=== PATIENT | male | born 1965 | race Caucasian/White ===

== ENCOUNTER 2019-11-26 12:44 | Outpatient (CLI) | payer OTHER, SELFPAY ==
--- NOTE | 2019-11-26 | XR_ITS ---
WS: [id number] LUMBAR SPINE: 5 VIEWS TECHNIQUE: AP, lateral, and L5-S1 spot. Lateral views in neutral, flexion and extension. HISTORY: LOW BACK PAIN COMPARISON: None available. Normal lumbar alignment. Moderate disc space narrowing and desiccation at L5-S1. Endplate osteophytes at all levels. With flexion and extension there is no instability. No destructive bone process or fracture. SI joints are symmetric bilaterally. No soft tissue abnormalities. XR/XR lumbar spine min 4V [id number] IMPRESSION: 1. Multilevel spondylosis with moderate degenerative disc disease at L5-S1. 2. No instability.
== END 2019-11-26 12:45 | disposition home or self-care (01) ==
LOC: RADOUTREAD 16:29
PROVIDERS: Family Provider Family Medicine; PCP Family Medicine; Visit Provider Physician Assistant
DX: Z76.89 Persons encountering health services in other specified circumstances (principal)

== ENCOUNTER → 2020-10-23 13:51 | Outpatient (BNVA) | payer OTHER, SELFPAY | PROVIDERS: Family Provider Family Medicine; PCP Family Medicine; Visit Provider Nurse Practitioner Family | DX: Z20.828 Contact with and (suspected) exposure to other viral communicable diseases (principal) | CPT/HCPCS: 87635 ==

== ENCOUNTER 2023-01-26 11:58 | Outpatient (CLI) | payer OTHER, SELFPAY ==
--- NOTE | 2023-01-26 12:06 | CT_ITS ---
WS: [id number] LDCT LUNG CANCER SCREENING HISTORY: NICOTINE Dependence, cigarettes TECHNIQUE: Axial imaging performed from the apices to 1 cm below the costophrenic angles. Coronal and sagittal reformats are submitted with axial MIP series. All CT scans at [facility] use at least one of these dose optimization techniques: automated exposure control; mA and/or kV adjustment per patient size (includes targeted exams where dose is matched to clinical indication); or iterativ e reconstruction. DLP: 76.51 mGy.cm DIvol: Mean CTDIvol: 1.60 (mGy) COMPARISON: None available. Diagnostic quality: Satisfactory Lungs: No pulmonary mass or nodule. No pneumonia. No endobronchial lesions. Heart: Normal size heart with no pericardial effusion.. Other findings: Mild atherosclerosis aorta. Normal size pulmonary artery. Small hiatal hernia. Hepati c steatosis. CT/CT lung screening [id number] IMPRESSION: LUNG-RADS: 1-Negative FOLLOW UP: 12 Month: Continue annual screening with LDCT OTHER FINDINGS (S MODIFIER): None.
== END 2023-01-26 11:59 | disposition home or self-care (01) ==
PROVIDERS: PCP Physician Assistant; Visit Provider Physician Assistant
DX: Z12.2 Encounter for screening for malignant neoplasm of respiratory organs (principal); F17.210 Nicotine dependence, cigarettes, uncomplicated
CPT/HCPCS: 71271

== ENCOUNTER 2023-12-31 09:29 | Emergency (ER) | payer OTHER, SELFPAY ==
[2023-12-31 09:43] VITALS: BP 155/87; PULSE 83; RESP 16; TEMP 36.9; O2SAT 93; BMI 33.4
--- NOTE | 2023-12-31 10:37 | W.ED.EYEPROB ---
HPI - Eye Problem General: Chief complaint: Eye Problems Stated complaint: eye problems Time Seen by Provider: 12/31/23 10:08 History of Present Illness: 58-year-old male presents to the emergency department with complaints of irritation and redness initially to his left eye that started 3 days ago and then it is spread yesterday to both eyes he states the eyes are having drainage and thick matting. He states he has light sensitivity he denies known injury or trauma. He states the eyes are burning and states that they are 3 out of 10. He denies change in vision. He states any sort of bright light causes his eyes to be extra sensitive. He states his has a similar illness. He denies fevers chills or night sweats. He denies UV exposure to the eyes. He denies headache dizziness or lightheaded feeling. He denies neck stiffness or pain. He denies fever. Review of Systems General: Reports: 10 or more systems reviewed and unremarkable except in HPI and below Eyes: Reports: eye discomfort, eye discharge, eye redness and increased production of tears PFSH ED PFSH: Social History (Updated 10/23/20 @ 12:22 by Jina Bunn NP) Smoking and tobacco/nicotine status: current every day tobacco/nicotine user Alcohol intake: current Alcohol intake frequency: holidays/special occasions only Substance/Drug Use: never Physical Exam Const: COMMON NORMALS: no acute distress, patient oriented x3 and alert HENMT: COMMON NORMALS: normocephalic, atraumatic, external ears normal, TM's normal bilaterally, Normal external nose present and moist oral mucous membranes HEAD & SCALP: normocephalic and atraumatic NOSE: Normal external nose present EXTERNAL EAR: Yes external ears normal TYMPANIC MEMBRANE: TM's normal bilaterally Eye: COMMON NORMALS: Equal, round and reactive pupils present GENERAL EYE: appearance normal, both eyes and all related structures and normal light reflex VISUAL ACUITY: Yes acuity normal VISUAL FUENTES: No peripheral vision loss and No central vision loss ALIGNMENT: Yes alignment normal CONJUNCTIVA: Yes conjunctival abnormal positive bilateral PUPIL: Yes Equal, round and reactive pupils present and Yes Pupil accommodation reflex normal EOM: No EOM abnormal, No movement deficit and No Nystagmus present DIRECT OPHTHALMOSCOPY: Yes normal light reflex Neck/C-Spine: COMMON NORMALS: full ROM, no lymphadenopathy, supple, no meningeal signs and no JVD Resp: COMMON NORMALS: normal respiratory effort, No use of accessory muscles and clear to auscultation bilaterally AUSCULTATION: clear to auscultation bilaterally Cardio: COMMON NORMALS: no JVD, regular rate, regular rhythm, S1 normal heart sound present, S2 normal heart sound present and Peripheral pulses 2+ throughout RATE: regular rate RHYTHM: regular rhythm HEART SOUNDS: S1 normal heart sound present and S2 normal heart sound present PERIPHERAL PULSES: Peripheral pulses 2+ throughout GI: COMMON NORMALS: Normal to inspection, nondistended, normoactive bowel sounds present, Soft to palpation and non-tender PALPATION: Yes Soft to palpation Extremity: COMMON NORMALS: normal to inspection, full ROM and capillary refill normal Neuro: COMMON NORMALS: patient oriented x3 SENSORIUM/ORIENTATION: Yes alert MENINGEAL SIGNS: Yes no meningeal signs Psych: COMMON NORMALS: mental status grossly normal, Normal thought process present, cooperative, normal affect and speech normal SPEECH: Yes normal speech THOUGHT PROCESS: Normal thought process present Skin: COMMON NORMALS: no rashes or lesions noted GENERAL SKIN EXAM: no rashes or lesions noted Course Vital Signs: Vital signs: Vital Signs Temperature 98.4 F 12/31/23 09:43 Pulse Rate 83 12/31/23 09:43 Respiratory Rate 16 12/31/23 09:43 Blood Pressure 155/87 12/31/23 09:43 Pulse Oximetry 93 12/31/23 09:43 Oxygen Delivery Me thod Room Air 12/31/23 09:43 MDM - Eye Problem Medical Decision Making Physical exam completed and documented it does appear that the patient on examination has bacterial conjunctivitis as his description of the onset of symptoms moved from his left eye to his right eye and he did come in contact with someone with bacterial conjunctivitis which was a spouse. I will provide him tetracaine for his irritation to his eyes. I will also provide him erythromycin ointment while here in the emergency department and also prescription with follow-up recommendation to deliverer merchandise of his choice. Medical Records I reviewed the patient's medical records. No radiology studies performed this visit Discharge Plan Discharge Patient Disposition: Home Clinical Impression: Bacterial conjunctivitis Condition: Stable Prescriptions: New erythromycin 5 mg/gram (0.5 %) ointment 1 applic ophthalmic (eye) BID 7 Days Qty: 50 0RF No Action metoprolol succinate 25 mg tablet extended release 24 hr 25 mg PO DAILY hydrochlorothiazide 12.5 mg capsule 12.5 mg PO DAILY Discharge Orders: Discharge ED (Routine); Ordered 12/31/23 Ordered By: Adair Dill Referrals: Luis Bunn MD [Physician] - Belinda Hitchcock PA [Primary Care Provider] - Discharge Diet: Usual diet Discharge Activity: Resume usual activity Patient Instructions: Opioid Safety, Pain Management Activity Restrictions/Additional Instructions: Activity Restrictions/Additional Instructions: Thank you for choosing [facility] for your healthcare needs today. Please realize that you were seen in the Emergency Department and that we are providing you with an emergency medical screening exam and this may not be a complete and all inclusive of all the testing and or medical work-up that you may need to determine your ailment or severity of your illness. It is very important that you follow-up as instructed with your Primary care provider or Specialist for additional evaluation and to discuss your medical treatment plan. You may return to the Emergency Department should you have concerns or if your condition changes or worsens in any way. Follow-up with your primary care provider or deliverer merchandise of your choice for additional evaluation treatment and care and to evaluate your healing process after being seen here in the emergency department. I have provided the contact information for a local Employee Relations Manager that you may contact for follow-up. Coding Level of Care Code ED Auxiliary Powerplant Operator for Katty Abernathy
[2023-12-31] MEDS: tetracaine 0.5% Op Soln 4 mL Btl 4 DROP EYE-BOTH (11:11)
[2023-12-31] MEDS: erythromycin Op Oint 1 gm 1 APPLIC EYE-LEFT (11:12)
== END 2023-12-31 11:16 | disposition home or self-care (01) ==
PROVIDERS: Emergency Provider Internal Medicine; PCP Physician Assistant
DX: H10.89 Other conjunctivitis (principal); Z72.0 Tobacco use
CPT/HCPCS: 99283

== ENCOUNTER 2024-02-13 08:42 | Outpatient (CLI) | payer OTHER, SELFPAY ==
--- NOTE | 2024-02-13 08:53 | CT_ITS ---
WS: [id number] LDCT LUNG CANCER SCREENING HISTORY: NICOTINE DEPENDENCE,CIGARETTES TECHNIQUE: Axial imaging performed from the apices to 1 cm below the costophrenic angles. Coronal and sagittal reformats are submitted with axial MIP series. All CT scans at [facility] use at least one of these dose optimization techniques: automated exposure control; mA and/or kV adjustment per patient size (includes targeted exams where dose is matched to clinical indication); or iterativ e reconstruction. DLP: 89.50 mGy.cm DIvol: Mean CTDIvol: 1.90 (mGy) COMPARISON: 01/26/2023 Diagnostic quality: Satisfactory Lungs: Mild hyperexpansion. No pulmonary mass or nodule. No endobronchial lesions. Heart: Normal size heart with no pericardial effusion.. Other findings: No adenopathy. Very minimal atherosclerotic plaque thoracic aorta. Mild heterogeneity within the liver. Mild hepatic steatosis. 1.2 cm LEFT adrenal adenoma. IMPRESSION: CT/CT lung screening [id number] LUNG-RADS: 1-Negative FOLLOW UP: 12 Month: Continue annual screening with LDCT OTHER FINDINGS (S MODIFIER): None.
== END 2024-02-13 08:43 | disposition home or self-care (01) ==
LOC: RAD 08:44
PROVIDERS: PCP Physician Assistant; Visit Provider Physician Assistant
DX: Z12.2 Encounter for screening for malignant neoplasm of respiratory organs (principal); F17.210 Nicotine dependence, cigarettes, uncomplicated
CPT/HCPCS: 71271

== ENCOUNTER 2025-02-13 08:47 | Outpatient (CLI) | payer OTHER, SELFPAY ==
--- NOTE | 2025-02-13 08:57 | CT_ITS ---
WS: [id number] LDCT LUNG CANCER SCREENING TECHNIQUE: Noncontrast CT of the chest with coronal and sagittal reformatted images. CLINICAL INFORMATION: NICOTINE DEPENDENCE,CIGARETTES COMPARISON: CT 2023 DLP: 75.89 mGy.cm DIvol: Mean CTDIvol: 1.60 (mGy) All CT scans at [facility] use at least one of these dose optimization techniques: automated exposure control; mA and/or kV adjustment per patient size (includes targeted exams where dose is matched to clinical indication); or iterative reconstruction. FINDINGS: Hyperinflation. No new suspicious pulmonary parenchymal abnormalities. Tiny noncalcified nodule RIGHT middle lobe. Normal caliber thoracic aorta. Aortic calcification. No mediastinal or hilar lymphadenopathy. No axillary lymphadenopathy. Mild thoracic curve. Moderate thoracic kyphosis. Hypertrophic changes thoracic spine. Small LEFT adrenal adenoma. CT/CT lung screening [id number] IMPRESSION: LUNG-RADS: 2-Benign Appearance or Behavior FOLLOW UP: 12 Month: Continue annual screening with LDCT
== END 2025-02-13 08:48 | disposition home or self-care (01) ==
PROVIDERS: PCP Physician Assistant; Visit Provider Physician Assistant
DX: Z12.2 Encounter for screening for malignant neoplasm of respiratory organs (principal); F17.210 Nicotine dependence, cigarettes, uncomplicated; R91.8 Other nonspecific abnormal finding of lung field; I70.0 Atherosclerosis of aorta; M43.8X4 Other specified deforming dorsopathies, thoracic region; M40.294 Other kyphosis, thoracic region; M89.38 Hypertrophy of bone, other site; D35.02 Benign neoplasm of left adrenal gland
CPT/HCPCS: 71271